=== PATIENT | female | born 1990 | race Caucasian/White ===

== ENCOUNTER 2019-03-21 05:55 | Inpatient (IN) | payer MEDICAID, OTHER ==
[~2019-03-21] VITALS: Ht 175.3 cm; Wt 65.0 kg
[2019-03-21 06:30] VITALS: Ht 175.3 cm; Wt 65.0 kg
[2019-03-21] MEDS ORDERED: LACTATED RINGER'S 1,000 ML IV PRN (07:03)
[2019-03-21] MEDS ORDERED: CARBOPROST 250 MCG INJ IM PRN (07:30)
[2019-03-21] MEDS ORDERED: MISOPROSTOL 200 MCG TAB PR PRN (07:30)
[2019-03-21] MEDS ORDERED: LIDOCAINE 1% (MPF) 30 ML INJ INJ PRN (07:30)
[2019-03-21] MEDS ORDERED: OXYTOCIN 30 UNITS/LR 500 ML IV PRN (07:30)
[2019-03-21] MEDS ORDERED: METHYLERGONOVINE 0.2 MG INJ IM PRN (07:30)
[2019-03-21] MEDS ORDERED: OXYTOCIN 30 UNITS/LR 500 ML IV SCH ×2 (07:30)
[2019-03-21] MEDS ORDERED: IBUPROFEN 600 MG TAB PO PRN (07:30)
[2019-03-21] MEDS ORDERED: CLINDAMYCIN 900 MG/D5W (PMX) 50 ML IVPB SCH (08:30)
[2019-03-21] MEDS: LACTATED RINGER'S 1,000 ML IV SCH ×2 (08:56→14:24)
[2019-03-21] MEDS: MISOPROSTOL 50 MCG CAPSULE PO SCH ×3 (09:04→17:07)
[2019-03-21] MEDS: CLINDAMYCIN 600 MG/D5W (PMX) 50 ML IVPB SCH (17:10)
--- NOTE | 2019-03-21 21:16 | HP ---
Date/Time of Note Date/Time of Note DATE: 03/21/19 TIME: 21:08 OB - History Hx of Present Free Text/Dictation 28 years old female 1 para 0 patient with a late care with me in the office patient came from [facility] at 34 weeks of . she came in with full care with early ultrasound diagnosis and she has her last period June 11, 2018 , she was given a due date of March 17, 2019, she is also known to be group B strep positive, otherwise she had an uneventful with weight gain of about 30 pounds. the patient is at 40 weeks and 5 days and is being admitted for induction of labor Last Menstrual Period: Jun 11, 2018 Estimated Due Date: Mar 17, 2019 : 1 Para: 0 Care: Good Care Ultrasounds: Normal mid trimester US Obstetrical Complications: None Medical Complications: None Past Family/Social History * Past Medical, Surgical, Family and Obstetric Histories reviewed from chart. Blood Type: O+ Rubella: unknown RPR/VDRL: Negative GBS Status: Positive HBsAG: Negative OB Admission Exam Physical Exam HEENT: WNL Heart: Rhythm Normal Lungs: Clear, Equal Abdomen: WNL Extremities: Normal Reflexes: Normal Cervical Dilatation: Fingertip Effacement: 25% Station: -1 Membranes: Intact Heart Rate: 130's Accelerations: Accelerations Present Varibility: Moderate Contractions on Admission: None Intensity: Mild Last 72 hours Lab Results CBC & BMP 03/21/19 09:29 JANNETH VARMA MD Mar 21, 2019 21:16
[2019-03-22] MEDS: MISOPROSTOL 50 MCG CAPSULE PO SCH ×4 (00:13→13:00)
[2019-03-22] MEDS ORDERED: AL HYDROX/MG HYDROX/SIMETH 30 ML CUP PO ONE (00:30)
[2019-03-22] MEDS: CLINDAMYCIN 600 MG/D5W (PMX) 50 ML IVPB SCH ×2 (01:06→06:41)
[2019-03-22] MEDS: LACTATED RINGER'S 1,000 ML IV SCH ×2 (01:06→04:42)
[2019-03-22] MEDS ORDERED: OXYTOCIN 30 UNITS/LR 500 ML IV SCH (04:30)
--- NOTE | 2019-03-22 04:42 | PREAC ---
Date/Time of Note Date/Time of Note DATE: 03/22/19 TIME: 04:42 Anesthesia Eval and Record Evaluation Time Pre-Procedure Interview DATE: 03/22/19 TIME: 04:41 Age 28 Sex female NPO: 8 hrs Preoperative diagnosis iup at term Planned procedure labor epidural Past Medical History Past Medical History: None Surgery & Anesthesia Issues No known issue Meds Anticoagulation: No Beta Krystal within 24 hr: No Reason Beta Krystal not given: Pt. not on B-Krystal Current Medications Lactated Ringer's 1,000 ml @ 125 mls/hr Q8H IV Last administered on 03/22/19at 01:06; Admin Dose 125 MLS/HR; Start 03/21/19 at 07:03 Lidocaine (Xylocaine 1% (Mpf)) 30 ml ONCE PRN INJ .EPISIOTOMY; Start 03/21/19 at 07:30 Oxytocin/Lactated Ringer's 500 ml @ 500 mls/hr ONCE POST IV ; Start 03/21/19 at 07:30 Oxytocin/Lactated Ringer's 500 ml @ 125 mls/hr POST IV ; Start 03/21/19 at 07:30 Ibuprofen (Motrin) 600 mg ONCE PRN PO .PAIN 1-5; Start 03/21/19 at 07:30 Lactated Ringer's 1,000 ml @ 2,000 mls/hr Q30M PRN IV .ANESTHESIA; Start 03/21/19 at 07:03 Oxytocin/Lactated Ringer's 500 ml @ 0 mls/hr ONCE PRN IV .VAGINAL BLEEDING; Start 03/21/19 at 07:30 Methylergonovine Maleate (Methergine) 0.2 mg ONCE PRN IM .VAGINAL BLEEDING; Start 03/21/19 at 07:30 Carboprost Tromethamine (Hemabate) 250 mcg ONCE PRN IM .VAGINAL BLEEDING; Start 03/21/19 at 07:30 Misoprostol (Cytotec) 1,000 mcg ONCE PRN VT .VAGINAL BLEEDING; Start 03/21/19 at 07:30 Misoprostol (Cytotec 50 Mcg Capsule) 50 mcg Q4 PO Last administered on 03/22/19at 00:13; Admin Dose 50 MCG; Start 03/21/19 at 09:00 Clindamycin HCl/ Dextrose 50 ml @ 50 mls/hr Q6 IVPB Last administered on 03/22/19at 01:06; Admin Dose 50 MLS/HR; Start 03/21/19 at 17:00 Oxytocin/Lactated Ringer's 500 ml @ 0 mls/hr FOR INDUCTION IV ; Start 03/22/19 at 04:30 Meds reviewed: Yes Allergies Coded Allergies: amoxicillin (Verified Allergy, Intermediate, swelling, 03/21/19) Allergies Reviewed: Yes Labs/Studies Labs Reviewed: Reviewed by anesthesiologist Result Diagram: 03/21/19 0929 Laboratory Tests 03/21/19 09:29 Blood Bank Test 03/21/19 09:29 Antibody Screen NEGATIVE Blood Type O POSITIVE Rh Immune Globulin Candidate NO test: Positive Pre-procedure Exam Airway: Adequate mouth opening, Adequate thyromental dist Mallampati: Mallampati II Teeth: Normal Lung: Normal Heart: Normal ASA Physical Status ASA physical status: 2 Emergency: None Planned Anesthetic Neuraxial: Epidural Pre-operative Attestations Prior to commencing anesthesia and surgery, the patient was re-evaluated, there was verification of: *The patient's identity *The results of appropriate recent lab work and preoperative vital signs *The above evaluation not changing prior to induction *Anesthetic plan, risk benefits, alternative and complications discussed with patient/family; questions answered; patient/family understands, accepts and wishes to proceed. GUERLINE SAMS Mar 22, 2019 04:42
[2019-03-22] MEDS ORDERED: FENTAnyl 2MCG/ML-ROPIV 0.2% 100 ML ONE (04:44)
[2019-03-22] MEDS ORDERED: FENTAnyl 2MCG/ML-ROPIV 0.2% 100 ML BAG EPI SCH (05:00)
[2019-03-22] MEDS ORDERED: NALOXONE (0.4 MG/ML) INJ IV PRN (05:00)
[2019-03-22] MEDS ORDERED: DIPHENHYDRAMINE 50 MG INJ IV PRN ×2 (05:00→11:30)
[2019-03-22] MEDS ORDERED: ONDANSETRON 4 MG INJ IV PRN ×2 (05:00→11:30)
--- NOTE | 2019-03-22 08:28 | PAC ---
Date/Time of Note Date/Time of Note DATE: 03/22/19 TIME: 08:27 Post-Anesthesia Notes Post-Anesthesia Note Last documented vital signs 123/67 78 16 99% or2 sat 97.8 temp Activity: WNL Respiratory function: WNL Cardiovascular function: WNL Mental status: Baseline Pain reasonably controlled: Yes Hydration appropriate: Yes Nausea/Vomiting absent: Yes GUERLINE SAMS Mar 22, 2019 08:28
[2019-03-22] MEDS ORDERED: LACTATED RINGER'S 1,000 ML IV* SCH (11:03)
--- NOTE | 2019-03-22 11:03 | LDN ---
Date/Time of Note Date/Time of Note DATE: 03/22/19 TIME: 10:59 Delivery Summary Spontaneous vaginal delivery. Induction of labor due to 40.5 weeks in early labor. Baby girl 9 Left vaginal laceration repaired under epidural anesthesia No complications No bleeding baby and mother to be transferred to Weeks of Gestation 40.5 Placenta Delivered: Spontaneously Meconium: none ( with out around the start on the anemia bleeding the patella as well as the voiding of unknown waviness and also diagnosed 29 at the time of a dental greater than 1hour with because length By avoiding the use of possible) Episiotomy: No Laceration repair: Vaginal left-sided Anesthesia type: Epidural Estimated blood loss: 200 Sponge & Needle done & correct: Yes All needle counts correct: Yes Any foreign bodies felt in the: No Delivery Information Sex Infant Sex: female Apgars 1 Minute: 9 Suctioning Nose & mouth suctioned at barney: Yes Umbilical Cord Umbilical cord with: 3 Vessels Cord presentations: no nuchal cord Cord Blood was obtained: Yes Mother & Baby Disposition Disposition Mom & Baby to Maternity; Good: Yes JANNETH VARMA MD Mar 22, 2019 11:03
[2019-03-22] MEDS ORDERED: SENNA/DOCUSATE NA (8.6MG/50MG) TAB PO PRN (11:30)
[2019-03-22] MEDS ORDERED: WITCH HAZEL/GLYCERIN PAD PR PRN (11:30)
[2019-03-22] MEDS ORDERED: CARBOPROST 250 MCG INJ IM PRN (11:30)
[2019-03-22] MEDS ORDERED: MAGNESIUM HYDROXIDE 30ML CUP PO PRN (11:30)
[2019-03-22] MEDS ORDERED: ACETAMINOPHEN 325 MG TAB PO PRN ×2 (11:30)
[2019-03-22] MEDS ORDERED: MISOPROSTOL 200 MCG TAB PR PRN (11:30)
[2019-03-22] MEDS ORDERED: OXYTOCIN 30 UNITS/LR 500 ML IV PRN (11:30)
[2019-03-22] MEDS ORDERED: METHYLERGONOVINE 0.2 MG INJ IM PRN (11:30)
[2019-03-22] MEDS ORDERED: DIPHENHYDRAMINE 25 MG CAP PO PRN (11:30)
[2019-03-22] MEDS ORDERED: HYDROCODONE/APAP (5/325) TAB PO PRN ×2 (11:30)
[2019-03-22] MEDS ORDERED: ONDANSETRON 4 MG TAB PO PRN (11:30)
[2019-03-22] MEDS ORDERED: BENZOCAINE 20% 56 ML SPRAY TOP PRN (11:30)
[2019-03-22] MEDS ORDERED: LANOLIN HPA 1 PKT TOP PRN (11:30)
[2019-03-22] MEDS ORDERED: DIBUCAINE 1% 30 GM OINT TOP PRN (11:30)
[2019-03-22 12:50] VITALS: BP 111/74; PULSE 74; RESP 18
[2019-03-22] MEDS: IBUPROFEN 800 MG TAB PO SCH ×3 (13:20→23:56)
[2019-03-22 15:30] VITALS: BP 117/62; PULSE 68; RESP 18
[2019-03-22 19:45] VITALS: BP 118/72; PULSE 66; RESP 18
[2019-03-23 00:18] VITALS: BP 118/56; PULSE 70; RESP 18
[2019-03-23 04:00] VITALS: BP 116/59; PULSE 66; RESP 18
[2019-03-23] MEDS: IBUPROFEN 800 MG TAB PO SCH ×4 (05:46→23:36)
[2019-03-23 08:55] VITALS: BP 105/73; PULSE 67; RESP 18
[2019-03-23 11:47] VITALS: BP 108/70; PULSE 69; RESP 17
[2019-03-23 16:45] VITALS: BP 111/78; PULSE 79; RESP 18
[2019-03-23 19:50] VITALS: BP 103/68; PULSE 79; RESP 18
--- NOTE | 2019-03-23 22:40 | PN ---
Date/Time of Note Date/Time of Note DATE: 03/23/19 TIME: 22:39 OB Subjective Subjective Subjective day 1 afebrile , doing well breast feeding uterus contracted lochia normal OB Objective HEENT: WNL Heart: Rhythm Normal Lungs: Clear, Equal Abdomen: WNL Extremities: Normal Reflexes: Normal ABJANNETH YOUNG MD Mar 23, 2019 22:40
--- NOTE | 2019-03-23 22:41 | PD.PPDC ---
LEVER MILLER Discharge Instruction Condition [id number] Patient Condition: Suzin4h Good Diet Undpm6Hd Diet: Nulqh3w Resume Regular Diet Activity/Restrictions [id number] Activity: Xrhmy0e Normal Activity May Shower [id number] Restrictions: [id number] No Exercising No Lifting No Driving No Sexual Activity Nothing in the Vagina No [place] No Tampons, douche Follow-up Follow-up with Physician: 6, Week/Weeks Return to clinic for [id number] [employer]UP[employer]IC[employer] OFFICER Instructions: [id number] Fever greater than 101 Chills Worsening abdominal pain Excessive Vaginal Bleeding More than 2 pads per hour Unable to tolerate diet [id number] OB Instructions: [id number] Breast Tenderness Depression Blurried Vision Headache [id number] Surgical Instructions: [id number] Incisional Drainage Incisional Redness JANNETH VARMA MD Mar 23, 2019 22:41
[2019-03-24 03:20] VITALS: BP 106/71; PULSE 69; RESP 19
[2019-03-24] MEDS: IBUPROFEN 800 MG TAB PO SCH (05:42)
--- NOTE | 2019-03-24 07:13 | DS ---
Date/Time of Note Date/Time of Note DATE: 03/24/19 TIME: 07:10 Obstetrical Discharge Record Final Diagnosis Final Diagnosis: Term delivered Vaginal Delivery Obstetrical Delivery: Spontaneous Complications Induction: Yes Condition on Discharge Physical Assessment Voiding: Yes Bowel Movement: Yes Breast: Soft, non-tender, Filling Fundus: Firm Calf Tenderness: No Patient Condition: Good JANNETH VARMA MD Mar 24, 2019 07:13
[2019-03-24 08:30] VITALS: BP 107/57; PULSE 65; RESP 16
[2019-03-24] MEDS ORDERED: VARICELLA VACCINE LIVE/PF 1,350 UNIT/0.5 ML ML SC* ONE (09:00)
[2019-03-24] MEDS ORDERED: MEASLES,MUMPS,RUBELLA VACCINE INJ SC* ONE (09:00)
[2019-03-24] MEDS ORDERED: DIPHTH/TET/ACEL PERTUSS (ADULT) 0.5 ML VIAL IM* ONE (09:00)
== END 2019-03-24 14:19 | disposition home or self-care (01) | DRG 806 ==
LOC: L-D 05:55 → MS1 03-22 13:06
PROVIDERS: ADMIT Obstetrics & Gynecology; ATTEND Obstetrics & Gynecology
PROC: 10E0XZZ Delivery of Products of Conception, External Approach (ICD-10-PCS; principal; 2019-03-22)
PROC: 0UQGXZZ Repair Vagina, External Approach (ICD-10-PCS; 2019-03-22)
PROC: 3E033VJ Introduction of Other Hormone into Peripheral Vein, Percutaneous Approach (ICD-10-PCS; 2019-03-22)
DX: O48.0 Post-term pregnancy (principal); O71.4 Obstetric high vaginal laceration alone; Z37.0 Single live birth; Z3A.40 40 weeks gestation of pregnancy
CPT/HCPCS: 62322; 76815; 85025; 85610; 85730; 86592; 86850; 86900; 86901; 87340; 90715; 90716; J2590; J3010; J7120